=== PATIENT | female | born 1965 | race Hispanic/Latino ===

== ENCOUNTER → 2023-09-24 | Day surgery (SDC) | payer MEDICARE ==
[~2023-09-24] MED LIST: ATORVASTATIN CA20 MG PO; B12; FARXIGA10 MG; FENTANYL CITRATE/PF 100MCG/2 ML INJ ONE; FUROSEMIDE40 MG PO; GLUCOSAMINE1000 MG; HUMALOG MI100 UNIT/2 SQ; HYDROCODONE-ACET5 M1; LACTATED RINGER'S 1,000 ML ONE; LIDOCAINE1 EA; METOPROLOL SUCC25 MG PO; MIDAZOLAM HCL 2 MG/2 ML VIAL ONE; NEURONTIN400 MG PO; OR PHACO EYE KIT ONE; OZEMPIC0.25 MG/02; PREOP PHACO EYE KIT ONE
[2023-09-24 09:07] VITALS: TEMP 98.4
[2023-09-24 09:20] VITALS: BP 134/81; PULSE 60; RESP 16; O2SAT 97
== END | disposition home or self-care (01) ==
LOC: OR 06:13
PROVIDERS: ATTEND Ophthalmology
DX: H25.12 Age-related nuclear cataract, left eye (principal); I10 Essential (primary) hypertension; E78.5 Hyperlipidemia, unspecified; E11.9 Type 2 diabetes mellitus without complications; E03.9 Hypothyroidism, unspecified; G89.29 Other chronic pain; F41.9 Anxiety disorder, unspecified; F32.A Depression, unspecified; Z91.041 Radiographic dye allergy status; Z79.4 Long term (current) use of insulin; Z79.85 Long-term (current) use of injectable non-insulin antidiabetic drugs; Z79.84 Long term (current) use of oral hypoglycemic drugs; Z79.899 Other long term (current) drug therapy; Z86.73 Personal history of transient ischemic attack (TIA), and cerebral infarction without residual deficits
CPT/HCPCS: 36415; 66984; 82948; J2250; J3010; J7121